=== PATIENT | male | born 1975 | race African-American/Black ===

== ENCOUNTER 2022-05-30 15:49 | Inpatient (IN) | payer OTHER ==
[2022-05-30 17:16] VITALS: BMI 31.3
[2022-05-30] MEDS ORDERED: ACETAMINOPHEN 325 MG TABLET (FP) ONE (19:03)
[2022-05-30] MEDS ORDERED: ACETAMINOPHEN 325 MG TABLET (FP) PO ONE (19:24)
[2022-05-30] MEDS ORDERED: IBUPROFEN 400 MG TABLET (FP) PO PRN (20:14)
[2022-05-30] MEDS ORDERED: NALOXONE HCL 0.4 MG/ML VIAL IM PRN (20:14)
[2022-05-30] MEDS ORDERED: NICOTINE 10 MG CARTRIDGE (INHALER) IH PRN (20:14)
[2022-05-30] MEDS ORDERED: POLYETHYLENE GLYCOL (HEALTHYLAX) 3350 17 GM PACKET PO PRN (20:14)
[2022-05-30] MEDS ORDERED: ACETAMINOPHEN 325 MG TABLET (FP) PO PRN (20:14)
[2022-05-30] MEDS ORDERED: NALOXONE HCL (KLOXXADO) 8 MG SPRAY NS PRN (20:14)
[2022-05-30] MEDS ORDERED: BENZONATATE 200 MG CAPSULE PO PRN (20:14)
[2022-05-30] MEDS ORDERED: LOPERAMIDE HCL 2 MG CAPSULE PO PRN (20:14)
[2022-05-30] MEDS ORDERED: guaiFENesin 600 MG TABLET.ER (FP) PO PRN (20:14)
[2022-05-30] MEDS ORDERED: MAG HYDROX/AL HYDROX/SIMETH 30 ML UNIT-DOSE CUP PO PRN (20:14)
[2022-05-30] MEDS ORDERED: IBUPROFEN 600 MG TABLET (FP) PO PRN (20:14)
[2022-05-30] MEDS ORDERED: BENZOCAINE/MENTHOL (CHLORASEPTIC ) LOZENGE MM PRN (20:14)
[2022-05-30] MEDS ORDERED: MAGNESIUM HYDROX 2400MG/30ML ORAL SUSPENSION 30 ML CUP PO PRN (20:14)
[2022-05-30] MEDS: APIXABAN 5 MG TABLET PO SCH (21:27)
[2022-05-30] MEDS: THIAMINE HCL 100 MG TABLET (FP) PO SCH (21:30)
[2022-05-30] MEDS: MELATONIN 5 MG TABLETS PO SCH (21:30)
[2022-05-31] MEDS: ACETAMINOPHEN 325 MG TABLET (FP) PO PRN ×2 (06:49→21:44)
[2022-05-31] MEDS: APIXABAN 5 MG TABLET PO SCH ×2 (09:58→21:45)
[2022-05-31] MEDS: PRENATAL VITAMINS W/ FOLIC ACID TABLET (FP) PO SCH (09:59)
[2022-05-31] MEDS ORDERED: TUBERCULIN PPD 5 TU/0.1ML VIAL ID ONE (12:28)
[2022-05-31] MEDS: THIAMINE HCL 100 MG TABLET (FP) PO SCH (21:44)
[2022-05-31] MEDS: MELATONIN 5 MG TABLETS PO SCH (21:45)
[2022-06-01] MEDS: hydrOXYzine PAMOATE 25 MG CAPSULE (FP) PO PRN (03:38)
[2022-06-01] MEDS: PRENATAL VITAMINS W/ FOLIC ACID TABLET (FP) PO SCH (09:22)
[2022-06-01] MEDS: APIXABAN 5 MG TABLET PO SCH ×2 (09:22→21:26)
[2022-06-01 12:28] LABS: HEMATOCRIT 34.3 % (35.4-49); HEMOGLOBIN 11.7 GM/dL (11.7-16.9); MCH 33.7 pg (25.7-33.7); MCHC 34.2 g/dl (32.0-35.9); MEAN CELL VOLUME 98.4 fl (80-96); MEAN PLT VOLUME 8.6 fl (7.5-11.1); PLATELET COUNT 223 10^3/uL (134-434); RBC 3.48 M/mm3 (4.00-5.60); RDW 17.5 % (11.9-15.9); WHITE BLOOD COUNT 5.2 K/mm3 (4.0-10.0)
[2022-06-01 12:44] LABS: POTASSIUM 3.9 mmol/L (3.5-5.1)
[2022-06-01 12:46] LABS: CALCIUM 8.8 mg/dL (8.5-10.1)
[2022-06-01 12:47] LABS: ALBUMIN 3.1 g/dl (3.4-5.0); BLOOD UREA NITROGEN 9.4 mg/dL (7-18)
[2022-06-01 12:50] LABS: CREATININE 0.9 mg/dL (0.55-1.3)
[2022-06-01 12:51] LABS: TOT PROT 7.2 g/dl (6.4-8.2)
[2022-06-01 12:52] LABS: BILIRUBIN,TOTAL 0.3 mg/dL (0.2-1)
[2022-06-01 12:54] LABS: SYPHILIS W/ RPR CONF NON-REACTIVE (NONREACTIVE)
[2022-06-01 13:36] LABS: PH,URINE 6.5 (5.0-8.0); URINE APPEARANCE CLEAR; URINE BILIRUBIN NEGATIVE (NEGATIVE); URINE COLOR YELLOW; URINE GLUCOSE (UA) NEGATIVE (NEGATIVE); URINE KETONE NEGATIVE (NEGATIVE); URINE LEUK ESTERASE NEGATIVE (NEGATIVE); URINE NITRITE NEGATIVE (NEGATIVE); URINE PROTEIN NEGATIVE (NEGATIVE); URINE UROBILINOGEN 0.2 mg/dL (0.2-1.0)
[2022-06-01] MEDS: MELATONIN 5 MG TABLETS PO SCH (21:26)
[2022-06-01] MEDS: ACETAMINOPHEN 325 MG TABLET (FP) PO PRN (21:26)
[2022-06-01] MEDS: THIAMINE HCL 100 MG TABLET (FP) PO SCH (21:26)
[2022-06-02] MEDS: APIXABAN 5 MG TABLET PO SCH ×2 (09:31→21:20)
[2022-06-02] MEDS: PRENATAL VITAMINS W/ FOLIC ACID TABLET (FP) PO SCH (09:31)
[2022-06-02] MEDS ORDERED: CALAMINE 8% TOPICAL LOTION 177 ML BOTTLE TP PRN (15:21)
[2022-06-02] MEDS: CLOTRIMAZOLE 10 MG TROCHE PO SCH ×2 (18:18→21:21)
[2022-06-02] MEDS: BACITRACIN 0.9 GM PACKET TP SCH (21:21)
[2022-06-02] MEDS: ACETAMINOPHEN 325 MG TABLET (FP) PO PRN (21:21)
[2022-06-02] MEDS: MELATONIN 5 MG TABLETS PO SCH (21:21)
[2022-06-02] MEDS: THIAMINE HCL 100 MG TABLET (FP) PO SCH (21:21)
[2022-06-03] MEDS: hydrOXYzine PAMOATE 25 MG CAPSULE (FP) PO PRN ×2 (01:04→21:28)
[2022-06-03] MEDS: CLOTRIMAZOLE 10 MG TROCHE PO SCH ×5 (06:28→21:28)
[2022-06-03] MEDS: APIXABAN 5 MG TABLET PO SCH ×2 (09:41→21:28)
[2022-06-03] MEDS: BACITRACIN 0.9 GM PACKET TP SCH ×2 (09:41→21:28)
[2022-06-03] MEDS: PRENATAL VITAMINS W/ FOLIC ACID TABLET (FP) PO SCH (09:41)
[2022-06-03 13:45] LABS: HIV INTERPRETATION NEGATIVE (NEGATIVE)
[2022-06-03] MEDS: MELATONIN 5 MG TABLETS PO SCH (21:27)
[2022-06-03] MEDS: THIAMINE HCL 100 MG TABLET (FP) PO SCH (21:27)
[2022-06-04] MEDS: CLOTRIMAZOLE 10 MG TROCHE PO SCH ×5 (06:47→21:29)
[2022-06-04] MEDS: PRENATAL VITAMINS W/ FOLIC ACID TABLET (FP) PO SCH (09:33)
[2022-06-04] MEDS: APIXABAN 5 MG TABLET PO SCH ×2 (09:33→21:29)
[2022-06-04] MEDS: BACITRACIN 0.9 GM PACKET TP SCH ×2 (09:35→21:29)
[2022-06-04] MEDS: THIAMINE HCL 100 MG TABLET (FP) PO SCH (21:28)
[2022-06-04] MEDS: MELATONIN 5 MG TABLETS PO SCH (21:29)
[2022-06-04] MEDS: hydrOXYzine PAMOATE 25 MG CAPSULE (FP) PO PRN (21:29)
[2022-06-04] MEDS: ACETAMINOPHEN 325 MG TABLET (FP) PO PRN (21:30)
[2022-06-05] MEDS: CLOTRIMAZOLE 10 MG TROCHE PO SCH ×5 (06:40→21:26)
[2022-06-05] MEDS: APIXABAN 5 MG TABLET PO SCH ×2 (09:37→21:27)
[2022-06-05] MEDS: PRENATAL VITAMINS W/ FOLIC ACID TABLET (FP) PO SCH (09:37)
[2022-06-05] MEDS: BACITRACIN 0.9 GM PACKET TP SCH ×2 (09:39→21:26)
[2022-06-05] MEDS: THIAMINE HCL 100 MG TABLET (FP) PO SCH (21:25)
[2022-06-05] MEDS: MELATONIN 5 MG TABLETS PO SCH (21:25)
[2022-06-05] MEDS: ACETAMINOPHEN 325 MG TABLET (FP) PO PRN (21:27)
[2022-06-05] MEDS: hydrOXYzine PAMOATE 25 MG CAPSULE (FP) PO PRN (21:28)
[2022-06-06] MEDS: CLOTRIMAZOLE 10 MG TROCHE PO SCH ×5 (06:35→21:54)
[2022-06-06] MEDS: APIXABAN 5 MG TABLET PO SCH (09:34)
[2022-06-06] MEDS: PRENATAL VITAMINS W/ FOLIC ACID TABLET (FP) PO SCH (09:34)
[2022-06-06] MEDS: BACITRACIN 0.9 GM PACKET TP SCH ×2 (09:36→21:54)
[2022-06-06] MEDS: VITAMINS A AND D TOPICAL OINTMENT 60 GM TUBE TP SCH ×2 (12:03→18:05)
[2022-06-06] MEDS: hydrOXYzine PAMOATE 25 MG CAPSULE (FP) PO PRN (21:51)
[2022-06-06] MEDS: THIAMINE HCL 100 MG TABLET (FP) PO SCH (21:52)
[2022-06-06] MEDS: MELATONIN 5 MG TABLETS PO SCH (21:53)
[2022-06-07] MEDS: VITAMINS A AND D TOPICAL OINTMENT 60 GM TUBE TP SCH ×4 (00:40→18:25)
[2022-06-07] MEDS: CLOTRIMAZOLE 10 MG TROCHE PO SCH ×5 (06:50→21:28)
[2022-06-07] MEDS: PRENATAL VITAMINS W/ FOLIC ACID TABLET (FP) PO SCH (09:32)
[2022-06-07] MEDS: BACITRACIN 0.9 GM PACKET TP SCH ×2 (09:32→21:28)
[2022-06-07] MEDS: THIAMINE HCL 100 MG TABLET (FP) PO SCH (21:26)
[2022-06-07] MEDS: MELATONIN 5 MG TABLETS PO SCH (21:26)
[2022-06-07] MEDS: hydrOXYzine PAMOATE 25 MG CAPSULE (FP) PO PRN (21:26)
[2022-06-07] MEDS: ACETAMINOPHEN 325 MG TABLET (FP) PO PRN (21:27)
[2022-06-08] MEDS: VITAMINS A AND D TOPICAL OINTMENT 60 GM TUBE TP SCH ×4 (00:51→18:30)
[2022-06-08] MEDS: CLOTRIMAZOLE 10 MG TROCHE PO SCH ×5 (06:16→21:29)
[2022-06-08] MEDS: PRENATAL VITAMINS W/ FOLIC ACID TABLET (FP) PO SCH (09:28)
[2022-06-08] MEDS: BACITRACIN 0.9 GM PACKET TP SCH ×2 (09:28→21:36)
[2022-06-08] MEDS: THIAMINE HCL 100 MG TABLET (FP) PO SCH (21:29)
[2022-06-08] MEDS: MELATONIN 5 MG TABLETS PO SCH (21:29)
[2022-06-08] MEDS: ACETAMINOPHEN 325 MG TABLET (FP) PO PRN (21:30)
[2022-06-08] MEDS: hydrOXYzine PAMOATE 25 MG CAPSULE (FP) PO PRN (21:31)
[2022-06-09] MEDS: VITAMINS A AND D TOPICAL OINTMENT 60 GM TUBE TP SCH ×4 (00:38→19:31)
[2022-06-09] MEDS: CLOTRIMAZOLE 10 MG TROCHE PO SCH ×5 (06:44→21:31)
[2022-06-09] MEDS: BACITRACIN 0.9 GM PACKET TP SCH ×2 (10:21→21:32)
[2022-06-09] MEDS: PRENATAL VITAMINS W/ FOLIC ACID TABLET (FP) PO SCH (10:22)
[2022-06-09] MEDS: THIAMINE HCL 100 MG TABLET (FP) PO SCH (21:31)
[2022-06-09] MEDS: MELATONIN 5 MG TABLETS PO SCH (21:31)
[2022-06-09] MEDS: hydrOXYzine PAMOATE 25 MG CAPSULE (FP) PO PRN (21:31)
[2022-06-09] MEDS: LACTULOSE 20 GM/30 ML UDC (FOR ORAL USE ONLY) PO SCH (21:32)
[2022-06-10] MEDS: VITAMINS A AND D TOPICAL OINTMENT 60 GM TUBE TP SCH ×4 (01:00→18:15)
[2022-06-10] MEDS: CLOTRIMAZOLE 10 MG TROCHE PO SCH ×5 (06:38→21:50)
[2022-06-10] MEDS: LACTULOSE 20 GM/30 ML UDC (FOR ORAL USE ONLY) PO SCH ×3 (06:38→21:50)
[2022-06-10] MEDS: PRENATAL VITAMINS W/ FOLIC ACID TABLET (FP) PO SCH (09:34)
[2022-06-10] MEDS: IBUPROFEN 600 MG TABLET (FP) PO PRN (14:04)
[2022-06-10] MEDS: MELATONIN 5 MG TABLETS PO SCH (21:49)
[2022-06-10] MEDS: THIAMINE HCL 100 MG TABLET (FP) PO SCH (21:49)
[2022-06-10] MEDS: hydrOXYzine PAMOATE 25 MG CAPSULE (FP) PO PRN (21:49)
[2022-06-11] MEDS: VITAMINS A AND D TOPICAL OINTMENT 60 GM TUBE TP SCH ×4 (01:00→17:56)
[2022-06-11] MEDS: LACTULOSE 20 GM/30 ML UDC (FOR ORAL USE ONLY) PO SCH ×3 (06:11→21:37)
[2022-06-11] MEDS: CLOTRIMAZOLE 10 MG TROCHE PO SCH ×5 (06:12→21:37)
[2022-06-11] MEDS: PRENATAL VITAMINS W/ FOLIC ACID TABLET (FP) PO SCH (10:01)
[2022-06-11] MEDS: THIAMINE HCL 100 MG TABLET (FP) PO SCH (21:37)
[2022-06-11] MEDS: MELATONIN 5 MG TABLETS PO SCH (21:37)
[2022-06-11] MEDS: hydrOXYzine PAMOATE 25 MG CAPSULE (FP) PO PRN (21:39)
[2022-06-12] MEDS: VITAMINS A AND D TOPICAL OINTMENT 60 GM TUBE TP SCH ×4 (01:00→17:33)
[2022-06-12] MEDS: CLOTRIMAZOLE 10 MG TROCHE PO SCH ×5 (06:12→21:51)
[2022-06-12] MEDS: LACTULOSE 20 GM/30 ML UDC (FOR ORAL USE ONLY) PO SCH ×3 (06:12→21:50)
[2022-06-12] MEDS: PRENATAL VITAMINS W/ FOLIC ACID TABLET (FP) PO SCH (09:33)
[2022-06-12] MEDS ORDERED: COLLOIDAL OATMEAL 1 BAR EACH TP PRN (10:41)
[2022-06-12] MEDS: IBUPROFEN 600 MG TABLET (FP) PO PRN (20:06)
[2022-06-12] MEDS: MELATONIN 5 MG TABLETS PO SCH (21:50)
[2022-06-12] MEDS: THIAMINE HCL 100 MG TABLET (FP) PO SCH (21:51)
[2022-06-12] MEDS: hydrOXYzine PAMOATE 25 MG CAPSULE (FP) PO PRN (21:51)
[2022-06-13] MEDS: VITAMINS A AND D TOPICAL OINTMENT 60 GM TUBE TP SCH ×4 (01:05→18:33)
[2022-06-13] MEDS: CLOTRIMAZOLE 10 MG TROCHE PO SCH ×5 (06:26→21:31)
[2022-06-13] MEDS: LACTULOSE 20 GM/30 ML UDC (FOR ORAL USE ONLY) PO SCH ×3 (06:26→21:31)
[2022-06-13] MEDS: PRENATAL VITAMINS W/ FOLIC ACID TABLET (FP) PO SCH (09:27)
[2022-06-13] MEDS: THIAMINE HCL 100 MG TABLET (FP) PO SCH (21:31)
[2022-06-13] MEDS: MELATONIN 5 MG TABLETS PO SCH (21:31)
[2022-06-13] MEDS: hydrOXYzine PAMOATE 25 MG CAPSULE (FP) PO PRN (21:33)
[2022-06-14] MEDS: VITAMINS A AND D TOPICAL OINTMENT 60 GM TUBE TP SCH ×4 (00:30→17:34)
[2022-06-14] MEDS: IBUPROFEN 600 MG TABLET (FP) PO PRN (02:51)
[2022-06-14] MEDS: CLOTRIMAZOLE 10 MG TROCHE PO SCH ×5 (06:26→21:50)
[2022-06-14] MEDS: LACTULOSE 20 GM/30 ML UDC (FOR ORAL USE ONLY) PO SCH ×3 (06:26→21:50)
[2022-06-14] MEDS: PRENATAL VITAMINS W/ FOLIC ACID TABLET (FP) PO SCH (09:22)
[2022-06-14] MEDS: THIAMINE HCL 100 MG TABLET (FP) PO SCH (21:50)
[2022-06-14] MEDS: MELATONIN 5 MG TABLETS PO SCH (21:50)
[2022-06-14] MEDS: hydrOXYzine PAMOATE 25 MG CAPSULE (FP) PO PRN (21:51)
[2022-06-15] MEDS: VITAMINS A AND D TOPICAL OINTMENT 60 GM TUBE TP SCH ×4 (00:04→17:31)
[2022-06-15] MEDS: IBUPROFEN 600 MG TABLET (FP) PO PRN (00:25)
[2022-06-15] MEDS: CLOTRIMAZOLE 10 MG TROCHE PO SCH ×5 (06:33→21:42)
[2022-06-15] MEDS: LACTULOSE 20 GM/30 ML UDC (FOR ORAL USE ONLY) PO SCH ×3 (06:33→21:41)
[2022-06-15] MEDS: PRENATAL VITAMINS W/ FOLIC ACID TABLET (FP) PO SCH (09:54)
[2022-06-15] MEDS: MELATONIN 5 MG TABLETS PO SCH (21:42)
[2022-06-15] MEDS: THIAMINE HCL 100 MG TABLET (FP) PO SCH (21:42)
[2022-06-15] MEDS: hydrOXYzine PAMOATE 25 MG CAPSULE (FP) PO PRN (21:43)
[2022-06-16] MEDS: VITAMINS A AND D TOPICAL OINTMENT 60 GM TUBE TP SCH ×4 (01:03→17:16)
[2022-06-16] MEDS: LACTULOSE 20 GM/30 ML UDC (FOR ORAL USE ONLY) PO SCH ×3 (06:07→21:50)
[2022-06-16] MEDS: CLOTRIMAZOLE 10 MG TROCHE PO SCH ×5 (06:07→21:51)
[2022-06-16] MEDS: PRENATAL VITAMINS W/ FOLIC ACID TABLET (FP) PO SCH (09:56)
[2022-06-16] MEDS: MELATONIN 5 MG TABLETS PO SCH (21:51)
[2022-06-16] MEDS: THIAMINE HCL 100 MG TABLET (FP) PO SCH (21:51)
[2022-06-16] MEDS: hydrOXYzine PAMOATE 25 MG CAPSULE (FP) PO PRN (21:52)
[2022-06-17] MEDS: VITAMINS A AND D TOPICAL OINTMENT 60 GM TUBE TP SCH ×4 (01:01→18:16)
[2022-06-17] MEDS: LACTULOSE 20 GM/30 ML UDC (FOR ORAL USE ONLY) PO SCH ×3 (06:44→21:48)
[2022-06-17] MEDS: CLOTRIMAZOLE 10 MG TROCHE PO SCH ×5 (06:45→21:49)
[2022-06-17] MEDS: PRENATAL VITAMINS W/ FOLIC ACID TABLET (FP) PO SCH (09:36)
[2022-06-17] MEDS: THIAMINE HCL 100 MG TABLET (FP) PO SCH (21:49)
[2022-06-17] MEDS: MELATONIN 5 MG TABLETS PO SCH (21:49)
[2022-06-17] MEDS: hydrOXYzine PAMOATE 25 MG CAPSULE (FP) PO PRN (21:49)
[2022-06-18] MEDS: VITAMINS A AND D TOPICAL OINTMENT 60 GM TUBE TP SCH ×5 (00:30→23:09)
[2022-06-18] MEDS: LACTULOSE 20 GM/30 ML UDC (FOR ORAL USE ONLY) PO SCH ×3 (06:13→21:37)
[2022-06-18] MEDS: CLOTRIMAZOLE 10 MG TROCHE PO SCH ×5 (06:13→21:38)
[2022-06-18] MEDS: IBUPROFEN 600 MG TABLET (FP) PO PRN (09:31)
[2022-06-18] MEDS: PRENATAL VITAMINS W/ FOLIC ACID TABLET (FP) PO SCH (09:31)
[2022-06-18] MEDS ORDERED: PANTOPRAZOLE 20 MG TABLET PO PRN (15:42)
[2022-06-18] MEDS: MELATONIN 5 MG TABLETS PO SCH (21:37)
[2022-06-18] MEDS: THIAMINE HCL 100 MG TABLET (FP) PO SCH (21:37)
[2022-06-18] MEDS: hydrOXYzine PAMOATE 25 MG CAPSULE (FP) PO PRN (21:38)
[2022-06-19] MEDS: CLOTRIMAZOLE 10 MG TROCHE PO SCH ×5 (06:09→21:41)
[2022-06-19] MEDS: VITAMINS A AND D TOPICAL OINTMENT 60 GM TUBE TP SCH ×2 (06:09→11:56)
[2022-06-19] MEDS: LACTULOSE 20 GM/30 ML UDC (FOR ORAL USE ONLY) PO SCH ×3 (06:09→21:40)
[2022-06-19] MEDS: PRENATAL VITAMINS W/ FOLIC ACID TABLET (FP) PO SCH (09:30)
[2022-06-19 11:09] LABS: POTASSIUM 4.1 mmol/L (3.5-5.1)
[2022-06-19 11:12] LABS: ALBUMIN 3.5 g/dl (3.4-5.0); BLOOD UREA NITROGEN 9.5 mg/dL (7-18); CALCIUM 9.7 mg/dL (8.5-10.1)
[2022-06-19 11:15] LABS: CREATININE 0.8 mg/dL (0.55-1.3)
[2022-06-19 11:16] LABS: BILIRUBIN,TOTAL 0.2 mg/dL (0.2-1); TOT PROT 7.8 g/dl (6.4-8.2)
[2022-06-19] MEDS ORDERED: VITAMINS A AND D TOPICAL OINTMENT 60 GM TUBE TP PRN (12:50)
[2022-06-19] MEDS: THIAMINE HCL 100 MG TABLET (FP) PO SCH (21:40)
[2022-06-19] MEDS: MELATONIN 5 MG TABLETS PO SCH (21:40)
[2022-06-19] MEDS: hydrOXYzine PAMOATE 25 MG CAPSULE (FP) PO PRN (21:41)
[2022-06-20] MEDS: CLOTRIMAZOLE 10 MG TROCHE PO SCH ×5 (06:19→21:35)
[2022-06-20] MEDS: LACTULOSE 20 GM/30 ML UDC (FOR ORAL USE ONLY) PO SCH ×3 (06:19→21:34)
[2022-06-20] MEDS: PANTOPRAZOLE 20 MG TABLET PO PRN ×2 (08:01→21:34)
[2022-06-20] MEDS: PRENATAL VITAMINS W/ FOLIC ACID TABLET (FP) PO SCH (09:30)
[2022-06-20] MEDS: IBUPROFEN 600 MG TABLET (FP) PO PRN (09:30)
[2022-06-20] MEDS: THIAMINE HCL 100 MG TABLET (FP) PO SCH (21:34)
[2022-06-20] MEDS: MELATONIN 5 MG TABLETS PO SCH (21:34)
[2022-06-20] MEDS: hydrOXYzine PAMOATE 25 MG CAPSULE (FP) PO PRN (21:34)
[2022-06-21] MEDS: PANTOPRAZOLE 20 MG TABLET PO PRN (06:17)
[2022-06-21] MEDS: LACTULOSE 20 GM/30 ML UDC (FOR ORAL USE ONLY) PO SCH ×3 (06:18→21:43)
[2022-06-21] MEDS: CLOTRIMAZOLE 10 MG TROCHE PO SCH ×5 (06:18→21:43)
[2022-06-21] MEDS: PRENATAL VITAMINS W/ FOLIC ACID TABLET (FP) PO SCH (09:33)
[2022-06-21] MEDS: THIAMINE HCL 100 MG TABLET (FP) PO SCH (21:42)
[2022-06-21] MEDS: MELATONIN 5 MG TABLETS PO SCH (21:43)
[2022-06-21] MEDS: hydrOXYzine PAMOATE 25 MG CAPSULE (FP) PO PRN (21:44)
[2022-06-22] MEDS: PANTOPRAZOLE 20 MG TABLET PO PRN (06:11)
[2022-06-22] MEDS: CLOTRIMAZOLE 10 MG TROCHE PO SCH ×5 (06:11→21:35)
[2022-06-22] MEDS: LACTULOSE 20 GM/30 ML UDC (FOR ORAL USE ONLY) PO SCH ×3 (06:12→21:35)
[2022-06-22] MEDS: PRENATAL VITAMINS W/ FOLIC ACID TABLET (FP) PO SCH (09:46)
[2022-06-22] MEDS: THIAMINE HCL 100 MG TABLET (FP) PO SCH (21:34)
[2022-06-22] MEDS: MELATONIN 5 MG TABLETS PO SCH (21:35)
[2022-06-22] MEDS: hydrOXYzine PAMOATE 25 MG CAPSULE (FP) PO PRN (21:36)
[2022-06-23] MEDS: LACTULOSE 20 GM/30 ML UDC (FOR ORAL USE ONLY) PO SCH ×3 (06:22→21:43)
[2022-06-23] MEDS: CLOTRIMAZOLE 10 MG TROCHE PO SCH ×5 (06:22→21:43)
[2022-06-23] MEDS: PRENATAL VITAMINS W/ FOLIC ACID TABLET (FP) PO SCH (09:39)
[2022-06-23] MEDS: MELATONIN 5 MG TABLETS PO SCH (21:43)
[2022-06-23] MEDS: THIAMINE HCL 100 MG TABLET (FP) PO SCH (21:43)
[2022-06-23] MEDS: hydrOXYzine PAMOATE 25 MG CAPSULE (FP) PO PRN (21:44)
[2022-06-24] MEDS: CLOTRIMAZOLE 10 MG TROCHE PO SCH ×5 (06:35→21:40)
[2022-06-24] MEDS: LACTULOSE 20 GM/30 ML UDC (FOR ORAL USE ONLY) PO SCH ×3 (06:35→21:40)
[2022-06-24] MEDS: PANTOPRAZOLE 20 MG TABLET PO PRN (06:35)
[2022-06-24] MEDS: PRENATAL VITAMINS W/ FOLIC ACID TABLET (FP) PO SCH (09:50)
[2022-06-24] MEDS: MELATONIN 5 MG TABLETS PO SCH (21:40)
[2022-06-24] MEDS: hydrOXYzine PAMOATE 25 MG CAPSULE (FP) PO PRN (21:40)
[2022-06-24] MEDS: THIAMINE HCL 100 MG TABLET (FP) PO SCH (21:40)
[2022-06-25] MEDS: CLOTRIMAZOLE 10 MG TROCHE PO SCH ×5 (06:21→21:45)
[2022-06-25] MEDS: LACTULOSE 20 GM/30 ML UDC (FOR ORAL USE ONLY) PO SCH ×3 (06:21→21:44)
[2022-06-25] MEDS: PANTOPRAZOLE 20 MG TABLET PO PRN (06:21)
[2022-06-25] MEDS: PRENATAL VITAMINS W/ FOLIC ACID TABLET (FP) PO SCH (09:41)
[2022-06-25] MEDS: hydrOXYzine PAMOATE 25 MG CAPSULE (FP) PO PRN (21:44)
[2022-06-25] MEDS: MELATONIN 5 MG TABLETS PO SCH (21:45)
[2022-06-25] MEDS: THIAMINE HCL 100 MG TABLET (FP) PO SCH (21:45)
[2022-06-26] MEDS: PANTOPRAZOLE 20 MG TABLET PO PRN (06:09)
[2022-06-26] MEDS: CLOTRIMAZOLE 10 MG TROCHE PO SCH (06:09)
[2022-06-26] MEDS: LACTULOSE 20 GM/30 ML UDC (FOR ORAL USE ONLY) PO SCH (06:11)
[2022-06-26 06:29] VITALS: BP 106/67; PULSE 89; RESP 18; TEMP 97.8
== END 2022-06-26 09:11 | disposition home or self-care (01) | DRG 772 ==
LOC: YASAS 15:49 → Y3E 19:53
PROVIDERS: ADMIT Allergy & Immunology; ATTEND Psychiatry & Neurology Pain Medicine
PROC: HZ42ZZZ Group Counseling for Substance Abuse Treatment, Cognitive-Behavioral (ICD-10-PCS; principal; 2022-05-30)
DX: F10.20 Alcohol dependence, uncomplicated (principal); F14.20 Cocaine dependence, uncomplicated; F17.210 Nicotine dependence, cigarettes, uncomplicated; F41.9 Anxiety disorder, unspecified; E72.20 Disorder of urea cycle metabolism, unspecified; K86.0 Alcohol-induced chronic pancreatitis; D57.3 Sickle-cell trait; K21.9 Gastro-esophageal reflux disease without esophagitis; L85.3 Xerosis cutis; Z87.19 Personal history of other diseases of the digestive system; Z86.718 Personal history of other venous thrombosis and embolism; Z79.01 Long term (current) use of anticoagulants
CPT/HCPCS: 36415; 80053; 81003; 82140; 82150; 82962; 83690; 83735; 85027; 86780; 86803; 87389; 87811; C9803-CS; U0003; U0005